=== PATIENT | female | born 1965 | race Caucasian/White ===

== ENCOUNTER 2019-09-01 14:13 | Inpatient (IN) | payer BC, OTHER ==
[~2019-09-01] VITALS: Ht 160 cm; Wt 56.2 kg
[2019-09-01] MEDS ORDERED: PANTOPRAZOLE SODIUM 40 MG/VIAL IV STA (15:31)
[2019-09-01] MEDS ORDERED: METOCLOPRAMIDE HCL 10MG/2ML VIAL IV STA (15:31)
[2019-09-01] MEDS ORDERED: OCTREOTIDE 1,000 MCG in SODIUM CHLORIDE 0.9% 100 ML IV ONE (15:45)
[2019-09-01] MEDS ORDERED: PANTOPRAZOLE 80 MG in SODIUM CHLORIDE 0.9% 80 ML IV ONE (15:45)
[2019-09-01] MEDS ORDERED: OCTREOTIDE ACETATE 50 MCG/ML 1ML IV ONE (15:45)
[2019-09-01] MEDS ORDERED: OCTREOTIDE 1,000 MCG in SODIUM CHLORIDE 0.9% 100 ML IV NR (16:21)
[2019-09-01 16:33] LABS: BASOPHILS % 0.8 % (0.0-2.0); EOSINOPHILS % 0.1 % (0.0-5.0); HEMATOCRIT. 31.2 % (36.0-48.0); HEMOGLOBIN. 10.4 g/dL (12.0-16.0); MEAN CORPUSCULAR HEMOGLOBIN 32.5 pg (28.0-32.0); MEAN CORPUSCULAR VOLUME 97.2 fL (81.0-99.0); MEAN PLATELET VOLUME 10.7 fl (7.4-10.4); MONOCYTES % 8.6 % (2.0-8.0); NEUTROPHILS % 71.5 % (40.0-76.0); PLATELET 71 x1000/uL (130-400); RED BLOOD CELL COUNT 3.21 mill/uL (4.2-5.4); RED CELL DISTRIBUTION WIDTH 15.6 % (11.6-14.6)
[2019-09-01 16:40] LABS: CHLORIDE 95 mEq/L (98-107)
[2019-09-01 16:42] LABS: INR 1.6; PROTHROMBIN TIME 16.2 sec (9.6-11.0)
[2019-09-01] MEDS ORDERED: CEFTRIAXONE 2 G PREMIX 50 ML IV ONE (17:45)
[2019-09-01 20:17] LABS: CLARITY URINE CLEAR (CLEAR); COLOR URINE YELLOW (YELLOW); KETONES URINE NEGATIVE (NEGATIVE); LEUKOCYTE ESTERASE URINE NEGATIVE (NEGATIVE); NITRITE URINE NEGATIVE (NEGATIVE); OCCULT BLOOD URINE NEGATIVE (NEGATIVE); PROTEIN URINE NEGATIVE (NEGATIVE); SPECIFIC GRAVITY URINE 1.028 (1.005-1.030); UROBILINOGEN URINE 0.2 E.U./dL (0.2-1.0)
[2019-09-01] MEDS ORDERED: DEXTROSE 50% WATER 50ML SYRINGE IV PRN (20:45)
[2019-09-01] MEDS ORDERED: INSULIN REGULAR (HUMULIN R) 300UNITS/3ML SUBCUT NR ×2 (20:45→21:00)
[2019-09-02] VITALS (9 sets, daily range): BP systolic 88–126; BP diastolic 43–70
[2019-09-02] MEDS ORDERED: ACETAMINOPHEN 650MG SUPP PR PRN (00:15)
[2019-09-02] MEDS ORDERED: MORPHINE SULFATE 2 MG/ML CPJ (NOT FOR IM USE) IV PRN (00:15)
[2019-09-02] MEDS ORDERED: PANTOPRAZOLE SODIUM 40 MG/VIAL IV SCH ×2 (00:15→09:00)
[2019-09-02] MEDS ORDERED: ONDANSETRON HCL 4MG/2ML INJ IV PRN (00:15)
[2019-09-02] MEDS: SODIUM CHLORIDE 0.9% 1,000 ML IV SCH ×2 (00:59→15:43)
[2019-09-02] MEDS ORDERED: METF-414 PO (04:03)
[2019-09-02] MEDS: BLOOD SUGAR DIAGNOSTIC STRIP TEST SCH ×4 (06:50→21:40)
[2019-09-02] MEDS: INSULIN LISPRO (HIGH DOSE) 100 UNITS/ML SUBCUT SCH ×4 (07:50→21:00)
[2019-09-02] MEDS ORDERED: INSULIN GLARGINE UD 100 UNITS/ML SYR SUBCUT SCH (10:00)
[2019-09-02] MEDS ORDERED: DIATR MEGLU/DIATRIZOATE SOLN 30ML PO NR (11:00)
[2019-09-02] MEDS: ACETAMINOPHEN 650MG/20.3ML UDC PO PRN ×2 (12:21→21:41)
[2019-09-02] MEDS ORDERED: ACETAMINOPHEN 325MG TABLET PO NR (12:30)
[2019-09-02 17:35] LABS: BASOPHILS % 0.9 % (0.0-2.0); EOSINOPHILS % 0.5 % (0.0-5.0); HEMATOCRIT. 22.8 % (36.0-48.0); HEMOGLOBIN. 7.5 g/dL (12.0-16.0); LYMPHOCYTES % 32.2 % (20.0-50.0); MEAN CORPUSCULAR HEMOGLOBIN 32.6 pg (28.0-32.0); MEAN CORPUSCULAR VOLUME 98.5 fL (81.0-99.0); MEAN PLATELET VOLUME 9.1 fl (7.4-10.4); MONOCYTES % 9.8 % (2.0-8.0); NEUTROPHILS % 56.6 % (40.0-76.0); PLATELET 63 x1000/uL (130-400); RED BLOOD CELL COUNT 2.31 mill/uL (4.2-5.4); RED CELL DISTRIBUTION WIDTH 15.7 % (11.6-14.6)
[2019-09-02 17:36] LABS: HEMATOCRIT 23.1 % (36.0-48.0); HEMOGLOBIN 7.5 g/dL (12.0-16.0)
[2019-09-02] MEDS ORDERED: SODIUM CHLORIDE 0.9% 500 ML IV SCH (17:45)
[2019-09-02] MEDS ORDERED: SODIUM CHLORIDE 0.9% 500 ML IV ONE (18:15)
[2019-09-02 18:19] LABS: HEPATITIS B SURFACE ANTIGEN NEGATIVE
[2019-09-02 18:47] LABS: HEPATITIS A AB IGM NEGATIVE (NEGATIVE)
[2019-09-02] MEDS: MIDODRINE HCL 5MG TABLET PO SCH (21:39)
[2019-09-02] MEDS: PANTOPRAZOLE SODIUM 40 MG/VIAL IV SCH (21:40)
[2019-09-03] VITALS (12 sets, daily range): BP systolic 75–91; BP diastolic 40–77
[2019-09-03] MEDS: SODIUM CHLORIDE 0.9% 1,000 ML IV SCH ×2 (02:41→16:06)
[2019-09-03] MEDS: ACETAMINOPHEN 650MG/20.3ML UDC PO PRN (03:12)
[2019-09-03 06:51] LABS: EOSINOPHILS % 1.1 % (0.0-5.0); LYMPHOCYTES % 31.1 % (20.0-50.0); MEAN CORPUSCULAR HEMOGLOBIN 32.4 pg (28.0-32.0); MEAN CORPUSCULAR VOLUME 97.7 fL (81.0-99.0); MONOCYTES % 9.4 % (2.0-8.0); NEUTROPHILS % 57.4 % (40.0-76.0); PLATELET 61 x1000/uL (130-400); RED BLOOD CELL COUNT 2.14 mill/uL (4.2-5.4); RED CELL DISTRIBUTION WIDTH 15.6 % (11.6-14.6)
[2019-09-03] MEDS: BLOOD SUGAR DIAGNOSTIC STRIP TEST SCH ×4 (07:20→21:00)
[2019-09-03 07:24] LABS: HEMATOCRIT. 20.9 % (36.0-48.0); HEMOGLOBIN. 6.9 g/dL (12.0-16.0)
[2019-09-03 08:03] LABS: CHLORIDE 110 mEq/L (98-107)
[2019-09-03] MEDS: PANTOPRAZOLE SODIUM 40 MG/VIAL IV SCH ×2 (09:37→22:17)
[2019-09-03] MEDS: INSULIN LISPRO (HIGH DOSE) 100 UNITS/ML SUBCUT SCH ×4 (09:40→22:27)
[2019-09-03] MEDS: MIDODRINE HCL 5MG TABLET PO SCH ×3 (09:41→18:34)
[2019-09-03] MEDS: INSULIN GLARGINE UD 100 UNITS/ML SYR SUBCUT SCH (11:25)
[2019-09-03 12:03] LABS: TOTAL IRON BINDING CAPACITY 255 ug/dL (250-450)
[2019-09-04] VITALS (10 sets, daily range): BP systolic 81–108; BP diastolic 18–56
[2019-09-04 02:59] LABS: BASOPHILS % 0.7 % (0.0-2.0); HEMATOCRIT. 29.7 % (36.0-48.0); HEMOGLOBIN. 10.3 g/dL (12.0-16.0); MEAN CORPUSCULAR HEMOGLOBIN 31.6 pg (28.0-32.0); MEAN CORPUSCULAR VOLUME 91.6 fL (81.0-99.0); NEUTROPHILS % 59.3 % (40.0-76.0); PLATELET 61 x1000/uL (130-400); RED BLOOD CELL COUNT 3.24 mill/uL (4.2-5.4); RED CELL DISTRIBUTION WIDTH 16.5 % (11.6-14.6)
[2019-09-04 03:03] LABS: CHLORIDE 108 mEq/L (98-107)
[2019-09-04 03:07] LABS: INR 1.2; PROTHROMBIN TIME 12.6 sec (9.6-11.0)
[2019-09-04] MEDS: SODIUM CHLORIDE 0.9% 1,000 ML IV SCH (05:04)
[2019-09-04] MEDS: ACETAMINOPHEN 650MG/20.3ML UDC PO PRN (06:56)
[2019-09-04] MEDS: BLOOD SUGAR DIAGNOSTIC STRIP TEST SCH ×4 (06:56→21:12)
[2019-09-04] MEDS: INSULIN LISPRO (HIGH DOSE) 100 UNITS/ML SUBCUT SCH ×4 (08:12→21:00)
[2019-09-04] MEDS: PANTOPRAZOLE SODIUM 40 MG/VIAL IV SCH (08:13)
[2019-09-04] MEDS: MIDODRINE HCL 5MG TABLET PO SCH ×3 (08:13→16:43)
[2019-09-04] MEDS: INSULIN GLARGINE UD 100 UNITS/ML SYR SUBCUT SCH (10:43)
[2019-09-04] MEDS ORDERED: POTASSIUM CHLORIDE 20MEQ TABLET SR PO NR (12:00)
[2019-09-04] MEDS ORDERED: GUAIFENESIN-DM 200MG-20MG/10ML UDC PO PRN (13:00)
[2019-09-04 14:51] LABS: HEMATOCRIT 32.3 % (36.0-48.0); HEMOGLOBIN 11.1 g/dL (12.0-16.0)
== END 2019-09-04 21:50 | disposition short-term general hospital (02) | DRG 378 ==
LOC: ER 14:13 → EDBEDREQ 15:34 → 3WST 17:46 → EDBEDREQ 17:47 → EDBEDREQSVC 17:47 → ENRESERV 19:24 → CANRESERV 19:24 → ENRESERV 21:49 → 6WST 09-02 10:40
PROVIDERS: ADMIT Hospitalist; ATTEND Hospitalist
PROC: 30233N1 Transfusion of Nonautologous Red Blood Cells into Peripheral Vein, Percutaneous Approach (ICD-10-PCS; principal; 2019-09-03)
DX: K92.2 Gastrointestinal hemorrhage, unspecified (principal); D62 Acute posthemorrhagic anemia; D68.9 Coagulation defect, unspecified; E44.0 Moderate protein-calorie malnutrition; E87.1 Hypo-osmolality and hyponatremia; D69.6 Thrombocytopenia, unspecified; E11.65 Type 2 diabetes mellitus with hyperglycemia; E87.8 Other disorders of electrolyte and fluid balance, not elsewhere classified; K74.60 Unspecified cirrhosis of liver; K80.20 Calculus of gallbladder without cholecystitis without obstruction; K82.8 Other specified diseases of gallbladder; I95.9 Hypotension, unspecified; R04.0 Epistaxis; Z92.21 Personal history of antineoplastic chemotherapy; Z85.05 Personal history of malignant neoplasm of liver; Z79.899 Other long term (current) drug therapy; Z79.84 Long term (current) use of oral hypoglycemic drugs; Z68.22 Body mass index [BMI] 22.0-22.9, adult
CPT/HCPCS: 36415; 71045; 76700; 80053; 81003; 82270; 82962; 83540; 83550; 85014; 85018; 85025; 85384; 86705; 86709; 86803; 86850; 86900; 86920; 87340; 96365; 96366; 96368; 96375; 99285; C9113; J0696; J1815; J2354; J2765; J7030; J7040; J7050; P9016